=== PATIENT | male | born 1990 | race Caucasian/White ===

== ENCOUNTER 2016-03-23 07:39 | Emergency (ER) | payer OTHER ==
[2016-03-23 07:54] VITALS: BP 166/105
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
== END 2016-03-23 11:20 | disposition home or self-care (01) ==
LOC: UCEAST 07:39
DX: S29.012A Strain of muscle and tendon of back wall of thorax, initial encounter (principal); V43.62XA Car passenger injured in collision with other type car in traffic accident, initial encounter; Y93.89 Activity, other specified; Y92.410 Unspecified street and highway as the place of occurrence of the external cause; R59.1 Generalized enlarged lymph nodes
CPT/HCPCS: 72050; 72070; 72125; 99211; G0463